=== PATIENT | male | born 1980 | race Caucasian/White ===

== ENCOUNTER 2017-03-24 16:32 | Emergency (ER) | payer SELFPAY ==
[~2017-03-24] VITALS: Ht 165.1 cm; Wt 70.3 kg
[2017-03-24 16:54] VITALS: BP 157/79
--- NOTE | 2017-03-24 16:57 | PHYS DOC ---
Past Medical History Past Medical History: No Pertinent History Past Surgical History: No Surgical History Adult General Chief Complaint Chief Complaint: FINGER INJURY [facility] HPI Patient is a 37 year old male presents emergency department stating that he was mowing his yard when a steak got caught in the blades. He states that he went to move the steak when the blade came around and cut him on the right ring finger. Patient has a avulsion type laceration noted. Bleeding is currently controlled. Patient's tetanus immunization is unknown. Review of Systems Review of Systems Constitutional: Denies fever or chills [] Eyes: Denies change in visual acuity, redness, or eye pain [] HENT: Denies nasal congestion or sore throat [] Respiratory: Denies cough or shortness of breath [] Cardiovascular: No additional information not addressed in HPI [] GI: Denies abdominal pain, nausea, vomiting, bloody stools or diarrhea [] : Denies dysuria or hematuria [] Musculoskeletal: Denies back pain or joint pain [] Integument: Denies rash or skin lesions. Avulsion laceration to the right 4th finger Neurologic: Denies headache, focal weakness or sensory changes [] Endocrine: Denies polyuria or polydipsia [] Current Medications Current Medications Current Medications Medications (Trade) Dose Ordered Sig/Florencia Start Time Stop Time Status Last Admin Dose Admin Ibuprofen (Motrin) 800 mg 1X ONCE 03/24/17 17:15 03/24/17 17:16 Allergies Allergies Allergies Coded Allergies Type Severity Reaction Last Updated Verified No Known Drug Allergies 03/24/17 No Physical Exam Physical Exam Constitutional: Well developed, well nourished, no acute distress, non-toxic appearance. [] HENT: Normocephalic, atraumatic, bilateral external ears normal, oropharynx moist, no oral exudates, nose normal. [] Eyes: PERRLA, EOMI, conjunctiva normal, no discharge. [] Neck: Normal range of motion, no tenderness, supple, no stridor. [] Cardiovascular:Heart rate regular rhythm, no murmur [] Lungs & Thorax: Bilateral breath sounds clear to auscultation [] Skin: Warm, dry, no erythema, no rash. Avulsion laceration noted to the right fourth finger tip. Approx length 1 cm. Back: No tenderness Extremities: No tenderness, no cyanosis, no clubbing, ROM intact, no edema. [] Neurologic: Alert and oriented X 3, normal motor function, normal sensory function, no focal deficits noted. [] Psychologic: Affect normal, judgement normal, mood normal. [] Current Patient Data Vital Signs Vital Signs Date Time Temp Pulse Resp B/P (MAP) Pulse Ox O2 Delivery O2 Flow Rate FiO2 03/24/17 16:54 98.2 72 18 99 Room Air 98.2 EKG EKG [] Radiology/Procedures Radiology/Procedures [] Course & Med Decision Making Course & Med Decision Making Pertinent Labs and Imaging studies reviewed. (See chart for details) [] Dragon Disclaimer Dragon Disclaimer This electronic medical record was generated, in whole or in part, using a voice recognition dictation system. Departure Departure Referrals: NO PCP (PCP) Laceration/Wound Repair Laceration/Wound Repair : Wound Length (cm): 1 Wound Explored: clean Betadine Prep?: Yes Wound Debrided: minimal JORDEN WAGNER APRN March 24, 2017 16:57
--- NOTE | 2017-03-24 17:05 | PHYS DOC ---
Past Medical History Past Medical History: No Pertinent History Past Surgical History: No Surgical History Alcohol Use: Occasionally Drug Use: None Adult General Chief Complaint Chief Complaint: FINGER INJURY HPI HPI Patient is a 37 year old male presents emergency department stating that he was closing a car door when he got home this morning and closed his left fifth finger in the door. There is no lacerations no abrasions noted. No discoloration noted he does have swelling noted to the finger. Cap refill brisk less than 2 seconds patient has full range of motion. Review of Systems Review of Systems Constitutional: Denies fever or chills [] Eyes: Denies change in visual acuity, redness, or eye pain [] HENT: Denies nasal congestion or sore throat [] Respiratory: Denies cough or shortness of breath [] Cardiovascular: No additional information not addressed in HPI [] GI: Denies abdominal pain, nausea, vomiting, bloody stools or diarrhea [] : Denies dysuria or hematuria [] Musculoskeletal: Denies back pain. Complaint of left fifth finger pain Integument: Denies rash or skin lesions [] Neurologic: Denies headache, focal weakness or sensory changes [] Endocrine: Denies polyuria or polydipsia [] Current Medications Current Medications Current Medications Medications (Trade) Dose Ordered Sig/Florencia Start Time Stop Time Status Last Admin Dose Admin Ibuprofen (Motrin) 800 mg 1X ONCE 03/24/17 17:15 03/24/17 17:16 03/24/17 17:05 800 MG Allergies Allergies Allergies Coded Allergies Type Severity Reaction Last Updated Verified No Known Drug Allergies 03/24/17 No Physical Exam Physical Exam Constitutional: Well developed, well nourished, no acute distress, non-toxic appearance. [] HENT: Normocephalic, atraumatic, bilateral external ears normal, oropharynx moist, no oral exudates, nose normal. [] Eyes: PERRLA, EOMI, conjunctiva normal, no discharge. [] Neck: Normal range of motion, no tenderness, supple, no stridor. [] Cardiovascular:Heart rate regular rhythm, no murmur [] Lungs & Thorax: Bilateral breath sounds clear to auscultation [] Skin: Warm, dry, no erythema, no rash. [] Back: No tenderness Extremities: Left fifth finger tenderness, no cyanosis, no clubbing, ROM intact , no edema. Swelling noted no discoloration noted tenderness noted over the entire finger area. Neurologic: Alert and oriented X 3, normal motor function, normal sensory function, no focal deficits noted. [] Psychologic: Affect normal, judgement normal, mood normal. [] Current Patient Data Vital Signs Vital Signs Date Time Temp Pulse Resp B/P (MAP) Pulse Ox O2 Delivery O2 Flow Rate FiO2 03/24/17 16:54 98.2 72 18 99 Room Air 98.2 EKG EKG [] Radiology/Procedures Radiology/Procedures [] Course & Med Decision Making Course & Med Decision Making Pertinent Labs and Imaging studies reviewed. (See chart for details) X-rays were negative for any bony abnormalities per Dr. Matson. Patient will be placed in an aluminum splint and will be discharged home with recommendations for Tylenol or ibuprofen for pain and discomfort ice packs and elevation as much as possible. Also recommended wearing the splint for the next 3-5 days. Signs and symptoms to return back to emergency department been provided. Patient be discharged home in stable condition [] Dragon Disclaimer Dragon Disclaimer This electronic medical record was generated, in whole or in part, using a voice recognition dictation system. Departure Departure Impression: Primary Impression: Contusion of finger, left Disposition: 01 HOME, SELF-CARE Condition: STABLE Referrals: NO PCP (PCP) THANH STAHL MD Patient Instructions: Finger Sprain, [id number] Additional Instructions: X-rays were negative for any bony abnormalities. Wear the splint for the next 3-5 days. Ice packs on 20 minutes off 20 minutes several times a day. Tylenol or ibuprofen for pain and discomfort. Ice packs on 20 minutes off 20 minutes several times a day. Elevation as much as possible. Follow-up with orthopedic if he continued to have pain in the next 5-7 days. Return back to emergency prior signs symptoms of become worse. JORDEN WAGNER CARGO BRACER March 24, 2017 17:05
--- NOTE | 2017-03-24 17:14 | RAD ---
Indication injury to the small finger. An AP view of the left hand was obtained as well as additional oblique and lateral imaging targeted to the small finger. No bony abnormality is seen
[2017-03-24] MEDS ORDERED: IBUPROFEN 800 MG TABLET. PO ONE (17:15)
== END 2017-03-24 17:18 | disposition home or self-care (01) ==
LOC: ER 16:46
DX: S60.052A Contusion of left little finger without damage to nail, initial encounter (principal); W23.0XXA Caught, crushed, jammed, or pinched between moving objects, initial encounter; Y93.89 Activity, other specified; Y92.89 Other specified places as the place of occurrence of the external cause; Y99.8 Other external cause status
CPT/HCPCS: 29130; 73140; 99284-25

== ENCOUNTER 2021-03-15 10:21 | Emergency (ER) | payer SELFPAY ==
[~2021-03-15] VITALS: Ht 165.1 cm; Wt 70.0 kg
--- NOTE | 2021-03-15 11:11 | PHYS DOC ---
Past Medical History Past Medical History: No Pertinent History (JORDEN VITAL SENIOR PRODUCT DEVELOPMENT SCIENTIST) Past Surgical History: No Surgical History (JORDEN VITAL APRN) Smoking Status: Current Every Day Smoker Alcohol Use: Occasionally Drug Use: None (JORDEN VITAL APRN) General Adult EDM: Chief Complaint: DENTAL PROBLEM HPI: HPI: Patient is a 41 year old male who presents with 2 days of frontal lower dental pain with swelling under his tongue that is tender and painful. Patient cannot stick out his tongue fully. He states that is hard to swallow. He has slight trismus and can open mouth. Denies fever, nausea, vomiting, headache, dizziness, abdominal pain, chills, shortness of breath, chest pain. Patient has history of smoking, meth abuse, dental caries. Patient rates his pain a 10 out of 10 states it is throbbing. States has been taking Tylenol for his pain. (JORDEN VITAL SENIOR PRODUCT DEVELOPMENT SCIENTIST) Review of Systems: Review of Systems: Constitutional: Denies fever or chills. [] Eyes: Denies change in visual acuity. [] HENT: Denies nasal congestion or sore throat. +Swelling under tongue. +Dental caries [] Respiratory: Denies cough or shortness of breath. [] Cardiovascular: Denies chest pain or edema. [] GI: Denies abdominal pain, nausea, vomiting, bloody stools or diarrhea. [] : Denies dysuria. [] Musculoskeletal: Denies back pain or joint pain. +Neck pain[] Integument: Denies rash. [] Neurologic: Denies headache, focal weakness or sensory changes. [] Endocrine: Denies polyuria or polydipsia. [] Lymphatic: Denies swollen glands. [] Psychiatric: Denies depression or anxiety. [] (JORDEN VITAL SENIOR PRODUCT DEVELOPMENT SCIENTIST) Heart Score: C/O Chest Pain: No Risk Factors: Risk Factors: DM, Current or recent (<one month) smoker, HTN, HLP, family history of CAD, obesity. Risk Scores: Score 0 - 3: 2.5% MACE over next 6 weeks - Discharge Home Score 4 - 6: 20.3% MACE over next 6 weeks - Admit for Clinical Observation Score 7 - 10: 72.7% MACE over next 6 weeks - Early Invasive Strategies (JORDEN VITAL APRN) Allergies: Allergies: Allergies Coded Allergies Type Severity Reaction Last Updated Verified No Known Drug Allergies 03/24/17 No (JORDEN VITAL APRN) Physical Exam: PE: Constitutional: Well developed, well nourished, no acute distress, non-toxic appearance. [] HENT: Normocephalic, atraumatic, bilateral external ears normal, oropharynx moist, no oral exudates, nose normal. Dental caries. Swelling and tenderness under the tongue. [] Eyes: PERRLA, EOMI, conjunctiva normal, no discharge. [] Neck: Normal range of motion, no tenderness, supple, no stridor. [] Cardiovascular:Heart rate regular rhythm, no murmur [] Lungs & Thorax: Bilateral breath sounds clear to auscultation [] Abdomen: Bowel sounds normal, soft, no tenderness, no masses, no pulsatile masses. [] Skin: Warm, dry, no erythema, no rash. [] Back: No tenderness, no CVA tenderness. [] Extremities: No tenderness, no cyanosis, no clubbing, ROM intact, no edema. [] Neurologic: Alert and oriented X 3, normal motor function, normal sensory function, no focal deficits noted. [] Psychologic: Affect normal, judgement normal, mood normal. [] (JORDEN VITAL APRN) EKG: EKG: [] (JORDEN VITAL APRN) Radiology/Procedures: Radiology/Procedures: [] Impression: [facility] [address] [place], [place] [id number] IMAGING REPORT Signed PATIENT: MOUNA ABRAMS AACCOUNT: [id number] : 1980 LOCATION: ER AGE: 41 SEX: M EXAM STATUS: REG ER ORD. PHYSICIAN: JORDEN VITAL APRN REASON: Dental pain x 1 week with swelling under tongue PROCEDURE: CT SOFT TISSUE NECK W/CONTRAST PQRS Compliance Statement: One or more of the following individualized dose reduction techniques were utilized for this examination: 1. Automated exposure control 2. Adjustment of the mA and/or kV according to patient size 3. Use of iterative reconstruction technique CT NECK SOFT TISSUE WITH IV CONTRAST Clinical Indication: Reason: Dental pain x 1 week with swelling under tongue / Comparison: None. TECHNIQUE: Helical CT imaging of the soft tissues of the neck is performed after 70 cc of Omnipaque 300 IV contrast. Findings: Visualized brain is without midline shift or mass effect. The globes and orbits are intact. Paranasal sinuses and mastoid air cells are clear. There is a mass at the base of the tongue with partial opacification of the vallecula. No thickening of the epiglottis is identified. Finding measures approximately 2.2 cm AP by 3.9 cm transverse by 2.6 cm craniocaudal. There are 2 subcentimeter groundglass nodules in the right upper lobe that are probably infectious/inflammatory, image is 3-4. Upper lungs otherwise clear. The thyroid, submandibular, and parotid glands are normal. There is an enlarged right submandibular lymph node measuring 1.5 x 1.9 cm. The re is a 1.2 cm right level 2 lymph node. There is degenerative spondylosis of C5/C6 and C6/C7. There is minimal grade 1 retrolisthesis of C6 on C7. The alignment is otherwise maintained. There are multiple bilateral upper and lower dental cavities. Periapical lucency of left maxilla frontal and lateral incisors. Periapical lucency of right and left mandible frontal incisors and right lateral incisor and probably left lateral incisor. Lucency of right mandible canine and first premolar. Lucency of left mandible first premolar. Dental cavities of bilateral mandible second premolars. Dental cavities right maxilla first and second molars. There is no obvious periodontal abscess. IMPRESSION: 1. Multiple bilateral upper and lower dental cavities. No obvious periodontal abscess. 2. There are mildly enlarged right submandibular and right level 2 lymph nodes. 3. There is a possible mass at the base of the tongue with partial opacification of the vallecula. Recommend correlation with direct visualization. Electronically signed by: Renan Santana MD (03/15/2021 12:53 PM) [id number] DICTATED and SIGNED BY: RENAN SANTANA MD DATE: 03/15/21 [id number] (JORDEN VITAL APRN) Course & Med Decision Making: Course & Med Decision Making Pertinent Labs and Imaging studies reviewed. (See chart for details) See HPI. Alert and oriented x4. Ambulatory with a steady gait. Speaks in full clear sentences. Swelling and tenderness under the tongue and patient is unable to really stick out his tongue at all. He can still open his mouth there is slight trismus. He appears to still be swallowing his saliva but states he has to spit at times. No respiratory distress. No swelling seen of the neck. Patient does state that his neck is starting to hurt. IMPRESSION: 1. Multiple bilateral upper and lower dental cavities. No obvious periodontal abscess. 2. There are mildly enlarged right submandibular and right level 2 lymph nodes. 3. There is a possible mass at the base of the tongue with partial opacification of the vallecula. Recommend correlation with direct visualization. I spoken to transfer team because we do not have ENT here and let them know about CT findings. Patient has a admitting doctor of Dr. Lomeli. Patient is started on clindamycin prior to leaving. Be transferred to . [] (JORDEN VITAL APRN) Dragon Disclaimer: Dragon Disclaimer: This electronic medical record was generated, in whole or in part, using a voice recognition dictation system. (JORDEN VITAL APRN) Departure Departure Impression: Primary Impression: Submandibular gland mass Additional Impression: Dental caries Disposition: [facility] () Condition: STABLE Referrals: NO PCP (PCP) Attending Signature Attending Signature I have participated in the care of this patient and I have reviewed and agree with all pertinent clinical information above including history, exam, and recommendations. (EJ ROSALES MD) JORDEN VITAL APRN Mar 15, 2021 11:11 EJ ROSALES MD Mar 16, 2021 07:23
[2021-03-15] MEDS ORDERED: IV NORMAL SALINE 1000ML BAG 1,000 ML IV ONE (11:15)
[2021-03-15] MEDS ORDERED: CONTRAST GIVEN. MC PRN (11:30)
[2021-03-15] MEDS ORDERED: IOHEXOL 300 MG/ML 100ML VIAL. IV ONE (11:30)
[2021-03-15 11:48] LABS: BASO # 0.2 x10^3/uL (0.0-0.2); BASO % 1 % (0-3); EOS # 0.3 x10^3/uL (0.0-0.7); EOS % 2 % (0-3); HEMATOCRIT 44.1 % (39.0-53.0); HEMOGLOBIN 14.7 g/dL (13.0-17.5); LYMPH # 2.6 x10^3/uL (1.0-4.8); LYMPH % 21 % (24-48); MEAN CORPUSCULAR HEMOGLOBIN 28 pg (25-35); MEAN CORPUSCULAR HGB CONC 33 g/dL (31-37); MEAN CORPUSCULAR VOLUME 84 fL (79-100); MONO % 8 % (0-9); NEUT # 8.6 x10^3/uL (1.8-7.7); NEUT % 68 % (31-73); PLATELET COUNT 361 x10^3/uL (140-400); RED BLOOD COUNT 5.28 x10^6/uL (4.30-5.70); RED CELL DISTRIBUTION WIDTH 13.6 % (11.5-14.5); WHITE BLOOD COUNT 12.6 x10^3/uL (4.0-11.0)
[2021-03-15 12:01] LABS: CALCIUM 8.8 mg/dL (8.5-10.1); CREATININE 0.8 mg/dL (0.7-1.3); GFR 107.1; POTASSIUM 4.2 mmol/L (3.5-5.1)
[2021-03-15 12:14] LABS: ALBUMIN/GLOBULIN RATIO 1.2 (1.0-1.7); TOTAL BILIRUBIN 0.4 mg/dL (0.2-1.0); TOTAL PROTEIN 7.4 g/dL (6.4-8.2)
--- NOTE | 2021-03-15 12:55 | RAD ---
PQRS Compliance Statement: One or more of the following individualized dose reduction techniques were utilized for this examinat ion: 1. Automated exposure control 2. Adjustment of the mA and/or kV according to patient size 3. Use of iterative reconstruction technique CT NECK SOFT TISSUE WITH IV CONTRAST Clinical Indication: Reason: Dental pain x 1 week with swelling under tongue / Comparison: None. TECHNIQUE: Helical CT imaging of the soft tissues of the neck is performed after 70 cc of Omnipaque 3 00 IV contrast. Findings: Visualized brain is without midline shift or mass effect. The globes and orbits are intact. Paranasal sinuses and mastoid air cells are clear. There is a mass at the base of the tongue with partial opacification of the vallecula. No thickening of the epiglottis is identified. Finding measures approximately 2.2 cm AP by 3.9 cm transverse by 2.6 cm craniocaudal. There are 2 subcentimeter groundglass nodules in the right upper lobe that are probably infectious/in flammatory, image is 3-4. Upper lungs otherwise clear. The thyroid, submandibular, and parotid glands are normal. There is an enlarged right submandibular lymph node measuring 1.5 x 1.9 cm. There is a 1.2 cm right l evel 2 lymph node. There is degenerative spondylosis of C5/C6 and C6/C7. There is minimal grade 1 retrolisthesis of C6 o n C7. The alignment is otherwise maintained. There are multiple bilateral upper and lower dental cavities. Periapical lucency of left maxilla fron bryan and lateral incisors. Periapical lucency of right and left mandible frontal incisors and right la teral incisor and probably left lateral incisor. Lucency of right mandible canine and first premolar. Lucency of left mandible first premolar. Dental cavities of bilateral mandible second premolars. Den bryan cavities right maxilla first and second molars. There is no obvious periodontal abscess. IMPRESSION: 1. Multiple bilateral upper and lower dental cavities. No obvious periodontal abscess. 2. There are mildly enlarged right submandibular and right level 2 lymph nodes. 3. There is a possible mass at the base of the tongue with partial opacification of the vallecula. R ecommend correlation with direct visualization. Electronically signed by: Renan Santana MD (03/15/2021 12:53 PM) [id number]
[2021-03-15] MEDS ORDERED: CLINDAMYCIN 900MG PREMIX 50 ML IV ONE (14:15)
[2021-03-15 14:57] VITALS: BP 194/94
== END 2021-03-15 16:00 | disposition short-term general hospital (02) ==
LOC: ER 10:21
DX: K02.9 Dental caries, unspecified (principal); R22.1 Localized swelling, mass and lump, neck; F17.200 Nicotine dependence, unspecified, uncomplicated
CPT/HCPCS: 36415; 70491; 80053; 85025; 96361; 96365; 99285; J3490; J7030; Q9967